=== PATIENT | male | born 1990 | race Caucasian/White ===

== ENCOUNTER 2021-02-08 05:33 | Emergency (ER) | payer OTHER ==
[~2021-02-08] VITALS: Ht 175.3 cm; Wt 68.0 kg
[2021-02-08] MEDS ORDERED: HUMALOG100 UNIT/1 SUBQ (05:44)
[2021-02-08] MEDS ORDERED: B12 ACTIVE1000 MCG PO (05:45)
[2021-02-08] MEDS ORDERED: MAGNESIUM250 M1 PO (05:45)
[2021-02-08 06:13] LABS: URINE BILIRUBIN NEGATIVE (Negative); URINE BLOOD 1+ (Negative); URINE CLARITY CLEAR; URINE COLOR YELLOW; URINE GLUCOSE-RANDOM TRACE (Negative); URINE KETONES TRACE (Negative); URINE LEUKOCYTES-REFLEX NEGATIVE (Negative); URINE NITRITE-REFLEX NEGATIVE (Negative); URINE PROTEIN 1+ (Negative); URINE UROBILINOGEN 0.2 E.U./dl (0.2-1.0)
[2021-02-08 06:20] LABS: BACTERIA-REFLEX 1-9 Few /HPF (None Seen); HYALINE CASTS 0-3 Few /LPF (None Seen); MUCUS 4-6 Moderate strn/LPF (None Seen); SQUAMOUS 0-3 Few /LPF (0-3); URINE RBC 3-10 Few /HPF (0-2); URINE WBC-REFLEX 0-5 Rare /HPF (0-5)
[2021-02-08 06:21] LABS: CRYSTALS None Seen /LPF (None Seen)
[2021-02-08 06:36] LABS: ABSOLUTE EOSINOPHILS 0.7 thou/uL (0.0-0.7); ABSOLUTE MONOCYTES 0.8 thou/uL (0.0-1.2); ABSOLUTE NEUTROPHILS 8.4 thou/uL (1.6-8.1); BASOPHILS 0.4 %; EOSINOPHILS 6.2 %; HEMATOCRIT 38.2 % (42.0-52.0); HEMOGLOBIN 12.7 gm/dL (14.0-18.0); LYMPHOCYTES 16.9 %; MCH 29.6 pg (26.0-34.0); MCHC 33.4 g/dL (28.0-37.0); MCV 88.7 fL (80.0-100.0); MONOCYTES 6.6 %; MPV 9.4 fl. (7.2-11.1); NUCLEATED RBCS 0 /100WBC; PLATELET COUNT* 266 thou/uL (150-400); POLYS 69.9 %; RBC 4.31 mil/uL (4.50-6.00); RDW-CV 13.3 % (10.5-14.5)
[2021-02-08 06:41] LABS: CREATININE 1.4 mg/dL (0.6-1.3); POTASSIUM 4.4 mmol/L (3.5-5.1)
[2021-02-08 06:45] LABS: ALBUMIN 3.5 g/dL (3.4-5.0); TOTAL BILIRUBIN 0.2 mg/dL (<0.1-1.0); TOTAL PROTEIN 7.3 g/dL (6.4-8.2)
[2021-02-08 07:33] LABS: CALCIUM 9.4 mg/dL (8.5-10.1)
[2021-02-08] MEDS ORDERED: FLEXERIL PO (08:11)
[2021-02-08] MEDS ORDERED: IBUPROFEN 800800 M1 PO (08:11)
[2021-02-08 08:20] VITALS: BP 138/70
--- NOTE | 2021-02-08 15:54 | EKG ---
[place] [address] ELECTROCARDIOGRAM REPORT Name: FLAVIO SAUCEDO Room: [facility]#: [id number] Admission: 02/08/21 Attend Phys: Discharge: 02/08/21 Date of : 89 Date of Service: 02/08/21725 Report #: [id number] THIS REPORT FOR: //name// [facility] ED Test Date: 2021-02-08 Test Time: 07:26:47 Pat Name: FLAVIO SAUCEDO Department: Room: Gender: Night Coordinator: : 1990 Requested By: Lisa España Order Number: [id number] MD: Shashank Tamayo Measurements Intervals [place] Rate: 58 P: 67 AL: 127 QRS: 72 QRSD: 112 T: 68 QT: 408 QTc: 401 Interpretive Statements Sinus rhythm Borderline intraventricular conduction delay Baseline wander in lead(s) V6 No previous ECG available for comparison Electronically Signed On 02-08-2021 15:54:26 CDT by Shashank Tamayo [email or web address] <ELECTRONICALLY SIGNED> By: Shashank Tamayo MD, [facility] 02/08/21 1554 5 Shashank Tamayo MD, [facility] /EPI
== END 2021-02-08 08:21 | disposition home or self-care (01) ==
LOC: M.ERS 05:33
PROVIDERS: Personal Emergency Response Attendant
DX: K85.90 Acute pancreatitis without necrosis or infection, unspecified (principal); M54.5 Low back pain; M54.6 Pain in thoracic spine; E10.9 Type 1 diabetes mellitus without complications; F17.210 Nicotine dependence, cigarettes, uncomplicated; Z90.49 Acquired absence of other specified parts of digestive tract; Z79.4 Long term (current) use of insulin; Z79.899 Other long term (current) drug therapy; Z88.0 Allergy status to penicillin; Z88.5 Allergy status to narcotic agent; Z88.1 Allergy status to other antibiotic agents